=== PATIENT | female | born 1995 ===

== ENCOUNTER 2021-01-17 08:11 | Inpatient (IN) | payer OTHER ==
[~2021-01-17] VITALS: Ht 162.6 cm; Wt 2.3 kg
[~2021-01-17 08:11] MED LIST: ADULT LOW DOSE81 M1 PO; DIALYVITE 800-1 EACH PO; LABETALOL HCL100 MG PO; MAGNESIUM400 M1 PO; ORTHO DF 3,7751 EACH; PRENATAL TABLE1 EAC1 PO; VISTARIL25 MG PO
== END 2021-01-20 16:19 | disposition home or self-care (01) | DRG 788 ==
LOC: OBS/DEL 08:11 → LDR 11:01 → OB/GYN 11:01 → O/R 17:22 → OB/GYN 17:26 → LDR 19:53 → OB/GYN 01-19 00:01
PROVIDERS: ADMIT Obstetrics & Gynecology; ATTEND Obstetrics & Gynecology
PROC: 4A1HXFZ Monitoring of Products of Conception, Cardiac Rhythm, External Approach (ICD-10-PCS; 2021-01-17)
PROC: 10D00Z1 Extraction of Products of Conception, Low, Open Approach (ICD-10-PCS; principal; 2021-01-17 14:00)
DX: O11.4 Pre-existing hypertension with pre-eclampsia, complicating childbirth (principal); O10.02 Pre-existing essential hypertension complicating childbirth; O62.0 Primary inadequate contractions; Z3A.38 38 weeks gestation of pregnancy; Z37.0 Single live birth

== ENCOUNTER 2022-08-06 14:18 | Emergency (ER) | payer OTHER ==
[~2022-08-06] VITALS: Ht 152.4 cm; Wt 116.1 kg
[2022-08-06] MEDS ORDERED: OZEMPIC1 MG/0.71 SQ (14:56)
[2022-08-06] MEDS ORDERED: ALDACTONE100 MG PO (14:56)
== END 2022-08-06 17:40 | disposition home or self-care (01) ==
LOC: ER 14:18
DX: M79.674 Pain in right toe(s) (principal)